=== PATIENT | female | born 1995 | race Caucasian/White ===

== ENCOUNTER 2019-04-21 13:46 | Emergency (ER) | payer BC, OTHER ==
[2019-04-21 14:09] VITALS: BP 121/74
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
[2019-04-21] MEDS ORDERED: Lidocaine 2% PF * 5 ML VIAL INJ ONE (14:26)
== END 2019-04-21 15:22 | disposition home or self-care (01) ==
LOC: UCCORT 13:46
DX: S61.303A Unspecified open wound of left middle finger with damage to nail, initial encounter (principal); F17.290 Nicotine dependence, other tobacco product, uncomplicated; W23.0XXA Caught, crushed, jammed, or pinched between moving objects, initial encounter; Y92.9 Unspecified place or not applicable; Y99.0 Civilian activity done for income or pay
CPT/HCPCS: 11730; 73140; 99212; G0463

== ENCOUNTER 2024-02-20 10:51 | Observation (INO) ==
[2024-02-20] MEDS ORDERED: methylPREDNISolone SOD SUCC 1000 MG ML VIAL IVPB ONE (11:49)
[2024-02-20] MEDS ORDERED: methylPREDNISolone SOD SUCC 1000 MG in NS 0.9% 100 ML IVPB ONE (13:00)
[2024-02-20 13:14] LABS: ABS Eosinophils 0.1 10^3/uL (0.0-0.5); ABS Lymphocytes 1.7 10^3/uL (1.0-4.8); ABS Monocytes 0.7 10^3/uL (0.0-0.9); ABS Nucleated RBC 0.01 10^3/ul; Eosinophil % 1.4 %; Hematocrit 43.3 % (35-45); Hemoglobin 14.6 g/dL (11.5-14.3); Lymphocyte % 25.9 %; Mean Corpuscular Hemoglobin 30.2 pg (27-33); Mean Corpuscular Hgb Conc 33.6 g/dL (31-36); Mean Corpuscular Volume 89.9 fL (80-97); Nucleated Red Blood Cells % 0.1 %/100WBC (0.0-0.8); Platelet Count 296 10^3/uL (150-450); Red Blood Count 4.82 10^6/uL (3.63-4.92); Red Cell Distribution Width 12.9 % (12-17); White Blood Count 6.6 10^3/uL (3.8-11.8)
[2024-02-20 13:19] LABS: INR 1.1 (0.85-1.14)
[2024-02-20] MEDS: Pantoprazole VIAL 40 MG VIAL IV ONE (13:36)
[2024-02-20] MEDS: methylPREDNISolone SOD SUCC 1,000 MG in NS 0.9% 250 ml 250 ML IVPB ONE (13:41)
[2024-02-20 14:17] LABS: HCG Pregnancy < 0.60 mIU/mL
[2024-02-20 14:51] LABS: ALT 8 U/L (7-52); AST 13 U/L (13-39); Albumin 4.5 g/dL (3.2-5.2); Albumin/Globulin Ratio 1.6 (1-3); Alkaline Phosphatase 76 U/L (35-149); Anion Gap 6 mmol/L (2-16); Blood Urea Nitrogen 6 mg/dL (6-24); CO2 Carbon Dioxide 27 mmol/L (22-32); Calcium 9.4 mg/dL (8.6-10.3); Chloride 104 mmol/L (101-111); Creatinine, Serum 0.88 mg/dL (0.51-0.95); Globulin 2.8 g/dL (2-4); Glucose 82 mg/dL (70-100); Potassium 4.4 mmol/L (3.5-5.0); Sodium 137 mmol/L (135-145); Total Bilirubin 0.4 mg/dL (0.2-1.0); Total Protein 7.3 g/dL (6.4-8.9); eGFR CKD-EPI 91.2 (>60)
[2024-02-20] MEDS: Enoxaparin 40 MG/0.4 ML SYR SUBCUT SCH (22:05)
[2024-02-21 06:31] LABS: Albumin 4.3 g/dL (3.2-5.2); Albumin/Globulin Ratio 1.7 (1-3); Calcium 9.7 mg/dL (8.6-10.3); Creatinine, Serum 0.77 mg/dL (0.51-0.95); Globulin 2.6 g/dL (2-4); Potassium 3.9 mmol/L (3.5-5.0); Total Bilirubin 0.3 mg/dL (0.2-1.0); Total Protein 6.9 g/dL (6.4-8.9)
[2024-02-21] MEDS: Pantoprazole VIAL 40 MG VIAL IV SCH (09:49)
[2024-02-21] MEDS: methylPREDNISolone SOD SUCC 1,000 MG in NS 0.9% 100 ml BAG 100 ML IVPB SCH (10:24)
[2024-02-22 09:44] VITALS: BP 120/64
== END 2024-02-22 14:35 | disposition home or self-care (01) ==
LOC: ED 10:51 → EDHOLD 10:51 → MED 15:58
PROVIDERS: ADMIT Hospitalist; ATTEND Hospitalist